=== PATIENT | male | born 2000 ===

== ENCOUNTER → 2022-08-14 | Emergency (ER) | payer OTHER ==
[~2022-08-14] VITALS: Ht 170.2 cm; Wt 63.5 kg
== END ==
LOC: ED 11:13
DX: J10.1 Influenza due to other identified influenza virus with other respiratory manifestations (principal); F29 Unspecified psychosis not due to a substance or known physiological condition; Z20.822 Contact with and (suspected) exposure to COVID-19
CPT/HCPCS: 36415; 80053; 81003; 84443; 85025; 87502; A9270; G0480; U0003

== ENCOUNTER → 2022-08-22 | Emergency (ER) | payer OTHER ==
[~2022-08-22] VITALS: Ht 170.2 cm; Wt 63.5 kg
--- OUTSIDE RECORDS SUMMARY | 2022-08-22 16:42 | XMS ---
PreManage Notification: SHAY KAUR Security Nurse Wound Events No recent Security Events currently on file CRITERIA MET - [facility] - 2 Visits in 30 Days CARE PROVIDERS There are no care providers on record at this time. Francisca has no Care Guidelines for this patient. Felipe VISIT COUNT (12 MO.) 2 [facility] [place] [facility] TOTAL 2 NOTE: Visits indicate total known visits. ED/C VISIT TRACKING (12 MO.) 08/22/2022 16:[address] [facility] [place] TYPE: Emergency COMPLAINT: - MEDICAL CLEARANCE 08/14/2022 11:[address] [facility] [place] TYPE: Emergency COMPLAINT: - MEDICAL CLEARANCE DIAGNOSES: - Delusional disorders - Unspecified psychosis not due to a substance or known physiological condition - Influenza due to other identified influenza virus with other respiratory manifestations - Contact with and (suspected) exposure to COVID-19 INPATIENT VISIT TRACKING (12 MO.) No inpatient visits to display in this time frame [email or web address]
== END ==
LOC: ED 16:41
DX: F22 Delusional disorders (principal)
CPT/HCPCS: 99284; A9270; A9270-GY; U0003

== ENCOUNTER 2024-01-25 21:49 | Emergency (ER) | payer OTHER ==
[~2024-01-25] VITALS: Ht 170.2 cm; Wt 97.0 kg
[2024-01-25 22:07] LABS: BILIRUBIN, URINE NEGATIVE (negative); BLOOD/HGB, URINE NEGATIVE (Negative); KETONE, URINE NEGATIVE (Negative); LEUK ESTERASE, URINE NEGATIVE (negative); NITRITE, URINE NEGATIVE (negative)
[2024-01-25] MEDS ORDERED: LURASIDONE HCL60 MG PO (22:15)
[2024-01-25] MEDS ORDERED: RISPERIDONE4 MG PO (22:15)
[2024-01-25] MEDS ORDERED: SERTRALINE HCL25 MG PO (22:16)
[2024-01-25 22:18] LABS: AMPHETAMINES, URINE NEGATIVE (NEGATIVE); BARBITURATES, URINE NEGATIVE (NEGATIVE); BENZODIAZEPINE, URINE NEGATIVE (NEGATIVE); BUPRENORPHINE, URINE NEGATIVE (NEGATIVE); CANNABINOID, URINE POSITIVE (NEGATIVE); COCAINE, URINE NEGATIVE (NEGATIVE); ECSTASY, URINE NEGATIVE (NEGATIVE); FENTANYL, URINE NEGATIVE (NEGATIVE); METHADONE, URINE NEGATIVE (NEGATIVE); OPIATES, URINE NEGATIVE (NEGATIVE); OXYCODONE, URINE NEGATIVE (NEGATIVE); PHENCYCLIDINE, URINE NEGATIVE (NEGATIVE)
[2024-01-25] MEDS ORDERED: LURASIDONE HCL40 MG PO (22:20)
[2024-01-25] MEDS ORDERED: PROPRANOLOL HCL10 MG PO (22:48)
[2024-01-25] MEDS ORDERED: MELADOX3 MG PO (22:49)
[2024-01-25] MEDS ORDERED: LOPERAMIDE2 MG PO (22:53)
[2024-01-25] MEDS ORDERED: HYDROXYZINE PAM25 MG PO (22:54)
[2024-01-25] MEDS ORDERED: BENADRYL25 MG PO (22:55)
[2024-01-25] MEDS ORDERED: ACETAMINOPHEN325 M1 PO (22:56)
[2024-01-25 22:59] LABS: PLATELET COUNT 250 K/uL (140-440)
[2024-01-25 23:02] LABS: BASOPHILS 0.4 % (0-2); EOSINOPHILS 1.7 % (0-6); HEMATOCRIT 43.1 % (35.0-50.0); HEMOGLOBIN 14.8 g/dL (12.0-18.0); LYMPHOCYTES 33.6 % (24-44); MCH 27.7 (27-36); MCHC 34.3 g/dl (30-36); MCV 80.5 fl (81-99); MONOCYTES 7.6 % (0-12); NEUTROPHILS 56.7 % (39-80); RBC 5.35 M/ul (4.3-5.7); RDW 13.3 (10.5-15.0)
[2024-01-25 23:33] LABS: ALBUMIN 3.8 g/dL (3.4-5.0); ALBUMIN/GLOBULIN RATIO 1.03 (1.1-2.4); ALCOHOL, MEDICAL <3 ng/dL (<3); ALKALINE PHOSPHATASE 93 U/L (46-116); ALT (SGPT) 49 U/L (14-59); ANION GAP 16.2 (7-21); AST (SGOT) 20 U/L (15-37); BILIRUBIN, TOTAL 0.3 ng/dL (0.2-1.0); CALCIUM 9.2 mg/dL (8.5-10.1); CARBON DIOXIDE 27 mmol/L (21-32); CHLORIDE 101 mmol/L (98-107); CREATININE, SERUM 1.04 mg/dL (0.70-1.30); GLOMERULAR FILTRATION RATE,EST 103 mL/min (>60); POTASSIUM 4.2 mmol/L (3.5-5.1); PROTEIN, TOTAL 7.5 g/dL (6.4-8.2); TSH, 3RD GENERATION 2.872 uIU/mL (0.358-3.740); UREA NITROGEN 18 mg/dL (7-18)
[2024-01-25 23:46] LABS: ACETAMINOPHEN 0 ug/mL (10-30); SALICYLATE 2.5 mg/dL (2.8-20.0)
[2024-01-26 11:40] VITALS: BP 123/74
== END 2024-01-26 11:41 | disposition home or self-care (01) ==
LOC: ED 21:49
PROVIDERS: Family Medicine
DX: F20.9 Schizophrenia, unspecified (principal); F41.1 Generalized anxiety disorder; F32.A Depression, unspecified; Z79.899 Other long term (current) drug therapy
CPT/HCPCS: 36415; 80053; 80307; 81003; 84443; 85025; 99285; G0480